=== PATIENT | female | born 1950 | race Caucasian/White ===

== ENCOUNTER 2016-11-04 06:02 | Day surgery (SDC) | payer MEDICARE ==
[2016-11-04] MEDS ORDERED: NACL BACTERIOSTATIC INFILTRATI ONE (06:49)
[2016-11-04] MEDS ORDERED: VERSED IV NR (07:00)
[2016-11-04] MEDS ORDERED: PEPCID PO NR (07:00)
[2016-11-04] MEDS ORDERED: NACL 0.9% 1000 ML 1,000 ML IV SCH (07:00)
--- NOTE | 2016-11-04 07:05 | Anesthesia Day of Surgery ---
Anesthesia Day of Surgery - Day of Surgery Patient Examined: Yes Patient H&P Reviewed: Yes Patient is NPO: Yes Beta Blockers: Yes (Took at 10PM last night)
--- NOTE | 2016-11-04 07:06 | Anesthesia Consultation ---
Anesthesia Consult and Med Hx - Airway Anesthetic Teeth Evaluation: Good ROM Head & Neck: Adequate Mental/Hyoid Distance: Adequate Mallampati Class: Class III Intubation Access Assessment: Possibly Difficult - Pulmonary Exam CTA: Yes - Cardiac Exam Cardiac Exam: RRR - Pre-Operative Health Status ASA Pre-Surgery Classification: ASA2 Proposed Anesthetic Plan: General - Pulmonary Hx Smoking: No Hx Sleep Apnea: No (DANIELLE PRE SCREEN LOW RISK) - Cardiovascular System Hx Hypertension: Yes (X 10 YRS) - Central Nervous System Hx Back Pain: Yes - Endocrine Hx Renal Disease: Yes (CKD) - Hematic Hx Anemia: Yes (NOT RECENT) - Other Systems Hx Cancer: No - Additional Comments Anesthesia Medical History Comments: NPO after MN. HTN and CKD. No prior anesthesia complications.Son was present for translation. Pt speaks croatian.
[2016-11-04] MEDS ORDERED: DIPRIVAN 10 MG/ML IV ONE (07:20)
[2016-11-04] MEDS ORDERED: XYLOCAINE MPF 2% ONE (07:20)
[2016-11-04] MEDS ORDERED: PERCOCET 5/325 PO PRN (07:23)
[2016-11-04] MEDS ORDERED: DILAUDID IV PRN (07:23)
[2016-11-04] MEDS ORDERED: ZOFRAN IV PRN (07:23)
[2016-11-04 07:44] LABS: Hematocrit 37.8 % (30.3-42.9); Hemoglobin 12.1 gm/dl (10.1-14.3)
[2016-11-04 07:57] LABS: BUN/Creatinine Ratio 18.66; Potassium 4.9 mmol/L (3.6-5.0)
[2016-11-04] MEDS ORDERED: ANCEF/STERILE WATER 2 GM/20 ML 2 GM/20 ML SYRINGE IV ONE (08:45)
[2016-11-04] MEDS ORDERED: ANCEF/STERILE WATER 2 GM/20 ML IV NR (09:00)
[2016-11-04] MEDS ORDERED: OMNIPAQUE (300 MG) IR ONE (09:13)
[2016-11-04] MEDS ORDERED: ePHEDrine SULFATE ONE (09:14)
[2016-11-04] MEDS ORDERED: WATER FOR IRRIG STERILE IR ONE ×2 (09:14)
--- NOTE | 2016-11-04 09:24 | Short Stay Summary ---
Short Stay Documentation Date of service: 11/04/16 - History H&P: obtained from office (attached) - Allergies and Medications Current Medications: Allergies No Known Allergies Allergy (Verified 10/21/16 16:16) Home Medications Medication Instructions Recorded Confirmed Last Taken Type Cholecalciferol (Vitamin D3) 2,000 unit PO QDAY 10/21/16 10/21/16 11/03/16 History [Vitamin D3] Losartan [Cozaar] 50 mg PO QDAY 10/21/16 10/21/16 11/03/16 History Metoprolol [Lopressor] 100 mg PO DAILY 10/21/16 10/21/16 11/03/16 History amLODIPine [Norvasc] 5 mg PO DAILY 10/21/16 10/21/16 11/03/16 History Active Medications Cefazolin Sodium (Ancef/Sterile Water 2 Gm/20 Ml) 2 gm IV PREOP NR Stop: 11/04/16 23:59 Famotidine (Pepcid) 20 mg PO PREOP NR Stop: 11/04/16 23:55 Last Admin: 11/04/16 06:58 Dose: 20 mg Hydromorphone HCl (Dilaudid) 0.25 mg IV Q10MIN PRN PRN Reason: Pain, Moderate (4-6) Stop: 11/04/16 16:00 Sodium Chloride (Nacl 0.9% 1000 Ml) 1,000 mls @ 100 mls/hr IV DIRECT LARRY Last Admin: 11/04/16 07:05 Dose: 100 mls/hr Midazolam HCl (Versed) 2 mg IV PREOP NR Stop: 11/04/16 23:59 Last Admin: 11/04/16 07:21 Dose: 2 mg Ondansetron HCl (Zofran) 4 mg IV ONCE PRN PRN Reason: Nausea And Vomiting Stop: 11/04/16 16:00 Oxycodone/Acetaminophen (Percocet 5/325) 1 tab PO ONCE PRN PRN Reason: Pain, Moderate (4-6) Stop: 11/04/16 16:00 - Brief post op/procedure progress note Date of procedure: 11/04/16 Pre-op diagnosis: hematuria Post-op diagnosis: same Procedure: cysto rpg Anesthesia: GETA Findings: normal Surgeon: DONIS HUANG Estimated blood loss: none Pathology: none Condition: stable - Hospital course Hospital course: [email or web address] - Disposition Condition at discharge: Good Disposition: DISCHARGED TO HOME OR SELFCARE Short Stay Discharge Plan Activity: advance as tolerated Diet: advance as tolerated Follow up with: DONIS HUANG MD [Staff Physician] - 14 Days
[2016-11-04 10:33] VITALS: BP 129/84
--- NOTE | 2016-11-04 13:25 | Post Anesthesia Evaluation ---
- Post Anesthesia Evaluation Patient Participated: Yes Airway Patent: Yes Stable Respiratory Function: Yes Nausea/Vomiting: No Temp > 96.8F: Yes Pain Manageable: Yes Adequeate Hydration: Yes Anesthesia Complications: No Block Receding Appropriately: Not Applicable Patient on Ventilator: No
--- NOTE | 2016-11-04 14:13 | Fluoroscopy Report ---
Retrograde pyelogram: History: Microscopic hematuria. Injections were made into the distal ureters bilaterally. There is good filling of the ureters and intrarenal collecting systems. No persisting contour or intraluminal abnormalities identified. Impression: No pathology identified.
--- NOTE | 2016-11-15 21:45 | Operative Report ---
PREOPERATIVE DIAGNOSES: 1. Hematuria. 2. Renal insufficiency. POSTOPERATIVE DIAGNOSES: 1. Hematuria. 2. Renal insufficiency. PROCEDURE: Cystoscopy, RPG. SURGEON: Maikel Hanson MD ANESTHESIA: General. SPECIMENS: None. ESTIMATED BLOOD LOSS: Minimal. COMPLICATIONS: None. FINDINGS: Negative cystoscopy and RPG. CLINICAL INDICATIONS: Counseled RCBA, antibiotics, SCDs, wanted to have the procedure under anesthesia for hematuria. DESCRIPTION OF PROCEDURE: Transferred to OR suite in supine position, anesthesia, dorsal lithotomy, prepped and draped, standard 22-Colombian scope passed, normal vaginal urethra. Pancystoscopy 30 and 70-degree lens demonstrated no tumors, lesions, or other abnormality. Left UO cannulated with an 8-Colombian cone-tipped catheter, contrast injected. Normal left distal ureter, proximal ureter, renal pelvis, calyces. No filling defects or hydronephrosis. This was repeated on the opposing right side with similar normal findings. Entire cystoscopy was within normal limits. Scope was withdrawn. Exam under anesthesia, no palpable urethral masses. The patient was awakened and transferred to the PACU in good and stable condition. JOB# [id number] ATS/NTS
== END 2016-11-04 11:28 | disposition home or self-care (01) ==
LOC: OR 06:02 → EDSEX 06:02 → OR 11:28
PROVIDERS: ATTEND Urology
DX: R31.9 Hematuria, unspecified (principal); I12.9 Hypertensive chronic kidney disease with stage 1 through stage 4 chronic kidney disease, or unspecified chronic kidney disease; N18.9 Chronic kidney disease, unspecified; D64.9 Anemia, unspecified
CPT/HCPCS: 36415; 52005; 74420; 80048; 85014; 85018; A4217; C1758; J0690; J1170; J2250; J2405; J2704; J7030; Q9967

== ENCOUNTER 2018-01-25 08:01 | Outpatient (CLI) | payer MEDICARE ==
--- NOTE | 2018-01-25 10:09 | Ultrasound Report ---
ULTRASOUND RENAL BILATERAL HISTORY: Renal cyst. COMPARISON: None. TECHNIQUE: transabdominal ultrasound with color Doppler interrogation. FINDINGS: The right kidney measures 8.1 x 3.1 x 3.9cm. Right renal cortex: 1.5cm. The left kidney measures 8.2 x 4.1 x 4.5cm. Left renal cortex: 1.4cm. Both kidneys are mildly atrophic and echogenic. A 3.3 x 3.5 cm simple cyst is noted in the superior right kidney. A 1.3 x 1.5 cm simple cyst is identified in the mid right kidney. A 9 mm simple cyst is noted in the superior left kidney. A 1.9 cm simple cyst is noted in the inferior left kidney. No evidence for nephrolithiasis, hypervascular mass or hydronephrosis. The bladder is partially empty but unremarkable. IMPRESSION: Findings consistent with mild chronic renal parenchymal disease. Bilateral simple appearing renal cysts.
== END 2018-01-25 08:02 | disposition home or self-care (01) ==
LOC: US 08:01
PROVIDERS: ATTEND Urology
DX: Q61.00 Congenital renal cyst, unspecified (principal); I10 Essential (primary) hypertension; D64.9 Anemia, unspecified
CPT/HCPCS: 76770